=== PATIENT | male | born 1955 | race Caucasian/White ===

== ENCOUNTER 2016-12-04 09:13 | Outpatient (CLI) | payer MEDICAID ==
[2016-12-04] MEDS ORDERED: BUFFERED LIDOCAINE 10 ML SYRINGE IU ONE (11:14)
== END 2016-12-04 09:14 | disposition home or self-care (01) ==
DX: E04.1 Nontoxic single thyroid nodule (principal)

== ENCOUNTER 2016-12-15 13:00 | Outpatient (CLI) | payer MEDICAID | END 2016-12-15 13:01 | disposition home or self-care (01) | DX: I10 Essential (primary) hypertension (principal) ==

== ENCOUNTER 2017-08-21 09:15 | Outpatient (CLI) | payer MEDICAID ==
[2017-08-21 17:55] LABS: BASOPHILS % (AUTO) 0.9 %; EOSINOPHILS # (AUTO) 0.1 10^3/uL (0.0-0.7); EOSINOPHILS % (AUTO) 2.5 %; HCT - HEMATOCRIT 47.6 % (42.0-52.0); HGB - HEMOGLOBIN 15.6 g/dL (14.0-18.0); LYMPHOCYTES # (AUTO) 1.7 10^3/uL (1.5-3.5); LYMPHOCYTES % (AUTO) 39.1 %; MEAN CORPUSCULAR HEMOGLOBIN 32.9 pg (27.0-31.0); MEAN CORPUSCULAR HGB CONC 32.8 g/dL (32.0-36.0); MEAN CORPUSCULAR VOLUME 100.4 fL (80.0-94.0); MEAN PLATELET VOLUME 8.2 fL (7.4-11.4); MONOCYTES # (AUTO) 0.4 10^3/uL (0.0-1.0); MONOCYTES % (AUTO) 8.8 %; NEUTROPHILS # (AUTO) 2.1 10^3/uL (1.5-6.6); NEUTROPHILS % (AUTO) 48.7 %; NUCLEATED RED BLOOD CELLS AUTO 0.1 /100WBC; RED BLOOD COUNT 4.74 10^6/uL (4.70-6.10); RED CELL DISTRIBUTION WIDTH 14.4 % (12.0-15.0); UNCORRECTED WHITE BLOOD COUNT 4.4 x10^3/uL; WHITE BLOOD COUNT 4.4 x10^3/uL (4.8-10.8)
[2017-08-21 18:47] LABS: ALBUMIN/GLOBULIN RATIO 1.5 (1.0-2.2); BILIRUBIN,TOTAL 0.9 mg/dL (0.2-1.0); BUN - BLOOD UREA NITROGEN 18 mg/dL (6-20); CARBON DIOXIDE - CO2 29 mmol/L (21-32); CHLORIDE 101 mmol/L (101-111); GFR - MDRD 76 (>89); GLUCOSE 102 mg/dL (70-100); POTASSIUM 4.5 mmol/L (3.5-5.0); SODIUM 138 mmol/L (135-145); TOTAL PROTEIN 7.4 g/dL (6.7-8.2)
== END 2017-08-21 09:16 | disposition home or self-care (01) ==
LOC: LAB.F 09:15
PROVIDERS: ATTEND Physician Assistant Medical
DX: Z00.00 Encounter for general adult medical examination without abnormal findings (principal); I10 Essential (primary) hypertension; E07.9 Disorder of thyroid, unspecified
CPT/HCPCS: 36415; 80053; 84443; 85025

== ENCOUNTER 2017-11-12 09:37 | Outpatient (CLI) | payer MEDICAID ==
--- NOTE | 2017-11-12 15:56 | Ultrasound Report ---
DATE OF SERVICE: 11/12/2017 ULTRASOUND-GUIDED FINE NEEDLE ASPIRATION OF LEFT THYROID NODULE: 11/12/2017 CLINICAL INDICATION: Previous [place] 1 fine needle aspiration, Afirma testing. FINDINGS: Following obtaining informed consent, the patient's left neck was prepped and draped in the usual sterile fashion. The skin and soft tissues were anesthetized with lidocaine. Four, 22-gauge fine needle aspirations were performed, with a portion of the specimen submitted in Afirma vial. The patient tolerated the procedure well. No immediate complications. IMPRESSION: FINE NEEDLE ASPIRATION OF LEFT THYROID NODULE FOR AFIRMA TESTING. AWAIT PATHOLOGY REPORT. TD: 11/12/2017 16:51
[2017-11-12] MEDS ORDERED: BUFFERED LIDOCAINE 10 ML SYRINGE IU ONE (16:39)
== END 2017-11-12 09:38 | disposition home or self-care (01) ==
LOC: DI 09:37
PROVIDERS: ATTEND Surgery
DX: E04.1 Nontoxic single thyroid nodule (principal)
CPT/HCPCS: 10022; 76942

== ENCOUNTER 2018-06-25 17:10 | Outpatient (CLI) | payer MEDICAID ==
--- NOTE | 2018-06-26 10:37 | Ultrasound Report ---
Reason: THYROID MASS Procedure Date: 06/25/2018 Accession Number: [id number] / [id number] Procedure: US - Head or Neck Soft Tissue CPT Code: FULL RESULT: EXAM: THYROID ULTRASOUND EXAM DATE: 06/25/2018 05:50 PM. CLINICAL HISTORY: Thyroid mass. COMPARISON: Thyroid ultrasound 08/22/2017. TECHNIQUE: Real time sonographic imaging of the thyroid was performed by the lining layer. Multiple telemarketing sales representative static images were saved for review. FINDINGS: THYROID GLAND: Right Lobe: 5.1 x 2.1 x 2.1 cm, volume 11.8 cc. Normal background echotexture. Right Lobe Nodules: Complex cystic and solid anterior right mid thyroid nodule measures overall 1.6 x 0.7 x 1.2 cm with solid inferior component, previously 1.5 x 0.7 x 1.0 cm. Inferior to this is a solid hypoechoic nodule measuring 1.0 x 0.9 x 0.9 cm with vascularity, previously 0.8 x 0.6 x 0.9 cm. Within the superolateral right thyroid lobe is a 0.5 x 0.3 x 0.4 cm nodule, previously 0.4 x 0.3 x 0.4 cm. Left Lobe: 4.6 x 2.4 x 2.1 cm, volume 12.1 cc. Normal background echotexture. Left Lobe Nodules: Complex predominantly solid heterogeneous left mid thyroid nodule measures 2.6 x 1.9 x 2.1 cm with vascularity. Along its medial aspect is a solid echogenic nodule measuring 1.2 x 1.0 x 0.8 cm. On prior study, a larger complex cystic nodule septations measured 5.3 x 3.3 x 4.6 cm, overall interval decrease in size. Isthmus: 0.4 cm AP. Isthmic Nodules: Hypoechoic left thyroid isthmus nodule measures 0.9 x 0.4 x 0.9 cm with vascularity. LYMPH NODES: No adenopathy demonstrated in the central or lateral compartment. OTHER: None. IMPRESSION: 1. Complex left mid thyroid nodule previously measuring up to 5.3 cm on 08/22/2017 has decreased in size to 2.6 cm on present exam. Nodule appears more solid today with a solid noncalcified echogenic component medially that could be from a separate nodule. Interval FNA on 11/12/2017. Recommend correlation with FNA result. 2. Stable right thyroid nodules. Management recommendations are based on 2015 [place] [employer] Management Guidelines for Adult Patients with Thyroid Nodules and Differentiated Thyroid Cancer. [facility]
== END 2018-06-25 17:11 | disposition home or self-care (01) ==
LOC: DI 17:10
PROVIDERS: ATTEND Physician Assistant Medical
DX: E04.2 Nontoxic multinodular goiter (principal)
CPT/HCPCS: 76536

== ENCOUNTER 2018-06-26 09:55 | Outpatient (CLI) | payer MEDICAID ==
[2018-06-26 17:14] LABS: BASOPHILS % (AUTO) 0.7 %; EOSINOPHILS # (AUTO) 0.1 10^3/uL (0.0-0.7); EOSINOPHILS % (AUTO) 2.5 %; HGB - HEMOGLOBIN 15.4 g/dL (14.0-18.0); LYMPHOCYTES # (AUTO) 1.2 10^3/uL (1.5-3.5); LYMPHOCYTES % (AUTO) 31.5 %; MEAN CORPUSCULAR HEMOGLOBIN 33.7 pg (27.0-31.0); MEAN CORPUSCULAR HGB CONC 33.5 g/dL (32.0-36.0); MEAN CORPUSCULAR VOLUME 100.4 fL (80.0-94.0); MEAN PLATELET VOLUME 8.1 fL (7.4-11.4); MONOCYTES # (AUTO) 0.4 10^3/uL (0.0-1.0); MONOCYTES % (AUTO) 10.1 %; NEUTROPHILS # (AUTO) 2.1 10^3/uL (1.5-6.6); NEUTROPHILS % (AUTO) 55.2 %; PLT - PLATELET COUNT 272 10^3/uL (130-450); RED BLOOD COUNT 4.56 10^6/uL (4.70-6.10); RED CELL DISTRIBUTION WIDTH 14.3 % (12.0-15.0); WHITE BLOOD COUNT 3.7 x10^3/uL (4.8-10.8)
[2018-06-26 17:39] LABS: ALBUMIN 4.5 g/dL (3.2-5.5); ALBUMIN/GLOBULIN RATIO 1.5 (1.0-2.2); ALKALINE PHOSPHATASE 38 IU/L (42-121); ALT ALANINE AMINOTRANSFERASE 20 IU/L (10-60); AST ASPARTATE AMINOTRANSFERASE 22 IU/L (10-42); BUN - BLOOD UREA NITROGEN 18 mg/dL (6-20); CALCIUM 8.7 mg/dL (8.5-10.3); CARBON DIOXIDE - CO2 25 mmol/L (21-32); CHLORIDE 102 mmol/L (101-111); CHOL/HDL RATIO 2.5 (<5.0); CHOLESTEROL 240 mg/dL; CREATININE 0.9 mg/dL (0.6-1.2); GFR - MDRD 86 (>89); GLUCOSE 98 mg/dL (70-100); HDL CHOLESTEROL 96 mg/dL; LDL CHOLESTEROL,CALCULATED 130 mg/dL; LDL/HDL RATIO 1.4 (<3.6); SODIUM 135 mmol/L (135-145); TOTAL PROTEIN 7.5 g/dL (6.7-8.2); VLDL CHOLESTEROL 14 mg/dL
[2018-06-26 17:47] LABS: PSA SCREEN (Z12.5) 4.128 ng/mL (0.000-2.000)
[2018-06-26 17:51] LABS: FREE T3 3.39 pg/mL (2.5-3.9)
[2018-06-26 17:54] LABS: FREE T4 (FREE THYROXINE) 0.8 ng/dL (0.58-1.64)
[2018-06-26 17:56] LABS: TOTAL T3 0.92 ng/mL (0.87-1.78)
== END 2018-06-26 09:56 | disposition home or self-care (01) ==
LOC: LAB.F 09:55
PROVIDERS: ATTEND Physician Assistant Medical
DX: I10 Essential (primary) hypertension (principal); E78.5 Hyperlipidemia, unspecified; Z12.5 Encounter for screening for malignant neoplasm of prostate; E07.9 Disorder of thyroid, unspecified
CPT/HCPCS: 36415; 80053; 80061; 83721; 84153; 84432; 84439; 84480; 84481; 85025; 86800

== ENCOUNTER 2018-08-30 12:55 | Outpatient (CLI) | payer MEDICAID ==
--- NOTE | 2018-08-31 19:00 | MRI Report ---
Reason: ACUTE TEAR MEDICAL MENISCUS Procedure Date: 08/30/2018 Accession Number: [id number] / [id number] Procedure: MRI - Knee LT W/O CPT Code: FULL RESULT: EXAM: LEFT KNEE MRI WITHOUT CONTRAST EXAM DATE: 08/30/2018 01:06 PM. CLINICAL HISTORY: Acute tear medical meniscus. COMPARISON: None. TECHNIQUE: Multiplanar, multisequence T1-weighted and fluid-sensitive sequences of the knee without contrast. Other: None. FINDINGS: Bones: No fractures or subluxations. No marrow edema. No bone lesions. Articular Cartilage: Severe chondromalacia medial patellar facet. Severe chondromalacia mid medial tibiofemoral compartment. Medial Meniscus: Horizontal degenerative tear posterior horn medial meniscus with extension to the inferior articular surface and free edge. Free edge tear posterior horn medial meniscus at the meniscal root. Free edge tear medial meniscus body. Vertical tear medial meniscus body with extension to the inferior articular surface. Lateral Meniscus: Free edge tear posterior horn lateral meniscus. Cruciate Ligaments: The anterior and posterior cruciate ligaments are intact. Collateral Ligaments: The medial collateral and lateral collateral ligamentous structures are intact. Tendons: The quadriceps, patellar, semimembranosus, and popliteus tendons are unremarkable. Musculature: Probable grade 1 muscle tear and extensive edema of the popliteus muscle and popliteus musculotendinous junction. Edema seen superficial to the proximal lateral gastrocnemius muscle and the proximal soleus muscle. There is edema marginating the common peroneal nerve at the level of and proximal to the fibular head with mild nerve edema. Other: Small quantity of joint fluid. No popliteal cyst. No loose bodies. The medial and lateral retinacula are intact. Edema of the infrapatellar fat pad. Small 7 mm cyst at the distal ACL. IMPRESSION: 1. Complex tear body and posterior horn medial meniscus. 2. Severe chondromalacia medial tibiofemoral compartment. 3. Severe chondromalacia medial patellar facet. 4. Tear and edema of the popliteus muscle and popliteus musculotendinous junction. 5. There is edema superficial to the proximal lateral gastrocnemius muscle and soleus muscle which marginates the common peroneal nerve proximal and at the level of the fibular head. Mild increased signal of the common peroneal nerve. Possible common peroneal nerve injury. [facility] MUSCULOSKELETAL RADIOLOGY SECTION
== END 2018-08-30 12:56 | disposition home or self-care (01) ==
LOC: DI 12:55
PROVIDERS: ATTEND Physician Assistant Medical
DX: S83.242A Other tear of medial meniscus, current injury, left knee, initial encounter (principal); S86.812A Strain of other muscle(s) and tendon(s) at lower leg level, left leg, initial encounter; M22.42 Chondromalacia patellae, left knee

== ENCOUNTER 2018-11-26 14:43 | Outpatient (CLI) | payer MEDICAID ==
[2018-11-26 17:27] LABS: BASOPHILS % (AUTO) 0.8 %; EOSINOPHILS # (AUTO) 0.1 10^3/uL (0.0-0.7); EOSINOPHILS % (AUTO) 1.1 %; HGB - HEMOGLOBIN 14.9 g/dL (14.0-18.0); LYMPHOCYTES # (AUTO) 1.3 10^3/uL (1.5-3.5); LYMPHOCYTES % (AUTO) 23.7 %; MEAN CORPUSCULAR HEMOGLOBIN 33.2 pg (27.0-31.0); MEAN CORPUSCULAR VOLUME 100.3 fL (80.0-94.0); MEAN PLATELET VOLUME 7.7 fL (7.4-11.4); MONOCYTES # (AUTO) 0.4 10^3/uL (0.0-1.0); MONOCYTES % (AUTO) 7.1 %; NEUTROPHILS # (AUTO) 3.7 10^3/uL (1.5-6.6); NEUTROPHILS % (AUTO) 67.3 %; PLT - PLATELET COUNT 276 10^3/uL (130-450); RED BLOOD COUNT 4.51 10^6/uL (4.70-6.10); RED CELL DISTRIBUTION WIDTH 13.9 % (12.0-15.0); WHITE BLOOD COUNT 5.6 x10^3/uL (4.8-10.8)
[2018-11-26 17:33] LABS: CALCIUM 9.1 mg/dL (8.5-10.3)
== END 2018-11-26 14:44 | disposition home or self-care (01) ==
LOC: LAB.F 14:43
PROVIDERS: ATTEND Orthopaedic Surgery Sports Medicine
DX: M23.92 Unspecified internal derangement of left knee (principal); M23.222 Derangement of posterior horn of medial meniscus due to old tear or injury, left knee; M23.232 Derangement of other medial meniscus due to old tear or injury, left knee
CPT/HCPCS: 36415; 80048; 85025

== ENCOUNTER 2018-11-27 06:11 | Day surgery (SDC) | payer MEDICAID ==
[2018-11-27] MEDS ORDERED: ceFAZolin 2 GM/50 ML 2 GM/50 ML BAG IV ONE ×2 (06:26→08:43)
[2018-11-27] MEDS ORDERED: BUPIVACAINE 0.25%-EPI 1:200000 PF 30 ML VIAL ONE (07:12)
[2018-11-27] MEDS ORDERED: EPINEPHrine 1 MG/ML AMP ONE (07:13)
--- NOTE | 2018-11-27 07:14 | ANESTHESIA ---
Pre-Anesthesia VS, & Labs - Diagnosis left knee internal deraingement with medial meniscal tear - Procedure left knee arthroscopy with partial medial meniscectomy possible shaving chondroplasty Vital Signs: Temp Pulse Resp BP Pulse Ox 36.3 C L 71 16 144/106 H 98 11/27/18 06:31 11/27/18 06:31 11/27/18 06:31 11/27/18 06:31 11/27/18 06:31 Height 5 ft 10.5 in Weight (kg) 94 kg Body Mass Index 24.4 - NPO >8 hours Home Medications and Allergies Home Medications: Ambulatory Orders Diclofenac Sodium [Voltaren] 2 gm TP QID PRN 11/26/18 Ibuprofen 1 - 2 tab PO TID PRN 11/26/18 Losartan Potassium 100 mg PO DAILY 11/26/18 Nitroglycerin [Nitrostat] 0.4 mg SL Q5MIN PRN 11/26/18 amLODIPine [Norvasc] 10 mg PO DAILY 11/26/18 Diclofenac Sodium [Voltaren] 2 gm TP QID PRN 11/26/18 Ibuprofen 1 - 2 tab PO TID PRN 11/26/18 Losartan Potassium 100 mg PO DAILY 11/26/18 Nitroglycerin [Nitrostat] 0.4 mg SL Q5MIN PRN 11/26/18 amLODIPine [Norvasc] 10 mg PO DAILY 11/26/18 Allergies/Adverse Reactions: Allergies Allergy/AdvReac Type Severity Reaction Status Date / Time No Known Drug Allergies Allergy Verified 11/27/18 06:52 Anes History & Medical History - Anesthetic History Anesthesia Complications: reports: No previous complications Family history of Anesthesia Complications: Denies Family history of Malignant Hyperthermia: Denies - Medical History Cardiovascular: reports: Hypertension, Murmur Pulmonary: reports: None Gastrointestinal: reports: None Urinary: reports: None Musculoskeletal: reports: Chronic back pain Endocrine/Autoimmune: reports: Other Skin: reports: None - Surgical History Eyes Ears Nose Throat (EENT): Other Orthopedic: Spine surgery Exam General: Alert Dental: WNL Mouth Openin Fingerbreadth Neck Mobility: Normal Mallampati classification: II Thyromental Distance: greater than 6 cm Respiratory: Lungs clear, Normal breath sounds, No respiratory distress, No accessory muscle use Cardiovascular: Regular rate, Normal S1, Normal S2, No murmurs Mental/Cognitive Status: Alert/Oriented X3, Normal for patient Plan Anesthesia Type: General Consent for Procedure(s) Verified and Reviewed: Yes Code Status: Attempt Resuscitation ASA classification: 2-Mild systemic disease Is this case an emergency?: No
[2018-11-27] MEDS ORDERED: LACTATED RINGERS 1,000 ML IV ONE (08:17)
[2018-11-27] MEDS ORDERED: BUPIVACAINE 0.25%-EPI 1:200000 PF 30 ML VIAL SUBQ ONE (08:17)
[2018-11-27] MEDS ORDERED: KETOROLAC 30 MG/ML VIAL IVP ONE (08:43)
[2018-11-27] MEDS ORDERED: fentaNYL 100 MCG/2 ML VIAL IVP ONE (08:43)
[2018-11-27] MEDS ORDERED: PROPOFOL 200 MG/20 ML VIAL IVP ONE (08:43)
[2018-11-27] MEDS ORDERED: ONDANSETRON 4 MG/2 ML VIAL IVP ONE (08:43)
[2018-11-27] MEDS ORDERED: ACETAMINOPHEN 1,000 MG/100 ML 100 ML IV ONE (08:43)
[2018-11-27] MEDS ORDERED: LIDOCAINE-MPF 2% 5 ML VIAL IM ONE (08:43)
[2018-11-27] MEDS: LABETALOL 20 MG/4 ML SYRINGE IVP ONE ×3 (08:50→09:00)
[2018-11-27] MEDS ORDERED: ONDANSETRON 4 MG/2 ML VIAL IVP PRN (08:55)
[2018-11-27] MEDS ORDERED: HYDROcod/ACETAM 5/325 MG TABLET PO PRN (08:55)
[2018-11-27] MEDS ORDERED: oxyCODONE 5 MG TABLET PO PRN (08:55)
--- NOTE | 2018-11-27 09:02 | IMMEDIATE POSTOPERATIVE NOTE ---
Immediate Postoperative Note - Procedure Note Procedure Date: 11/27/18 Pre-Op Diagnosis: Left knee medial meniscus tear, chondromalacia Procedure: Left knee arthroscopic partial med and lat meniscectomy, shaving chondro Post-Op Diagnosis: Left knee medial meniscus tear, chondromalacia, lateral meniscus tear Primary Surgeon: Giovanni Tatum MD Anesthesia Type: General LMA, Local Findings: As above Complications: No complications Estimated Blood Loss (in cc): 25 Specimens and Cultures: None Plan of Care: Patient tolerated procedure well. Instrument and sponge counts correct. Patient transferred to recovery room in stable condition. Patient will follow standard postoperative left knee arthroscopic partial meniscectomy protocol. He will avoid exertion but do gradual activities as tolerated. He will keep his dressings clean dry and intact for 3 days and then transition to waterproof Band-Aids at that point and may shower but not soak. He will work on gradual range of motion when at rest. We will see him back in 10-14 days or sooner on an as-needed basis. Patient's is contacted in the waiting room case is discussed postoperative instructions reviewed she verbalized understanding agreement satisfaction with the plan. He will be on aspirin 325 mg daily for DVT prophylaxis for 1 month. Patient is prescribed [place] he denies any contraindications to these medications and verbalizes understanding of the risks and wishes to take the meds as directed.
[2018-11-27 10:00] VITALS: BP 150/93
[2018-11-27] MEDS ORDERED: amLODIPine 5 MG TABLET PO ONE (10:00)
[2018-11-27] MEDS ORDERED: LOSARTAN 50 MG TABLET PO ONE (10:00)
--- NOTE | 2018-11-27 16:29 | OPERATIVE REPORT ---
DATE OF SERVICE: 11/27/2018 Physician: Billy Tatum MD SURGEON: Billy Tatum MD FILLING CARRIER: None. ANESTHESIOLOGIST: Suleiman Eng MD. ANESTHESIA: General LMA anesthesia as well as periarticular 30 mL of 0.25% Marcaine with epinephrine local. ESTIMATED BLOOD LOSS: Less than 25 mL COMPRESSION DEVICE: Contralateral right calf SCD boots. PREOPERATIVE ANTIBIOTICS: Weight-based IV Ancef. PREOPERATIVE DIAGNOSES 1. Left knee medial meniscus tear. 2. Left knee chondromalacia. POSTOPERATIVE DIAGNOSES 1. Left knee medial meniscus tear. 2. Left knee chondromalacia. 3. Left knee lateral meniscus tear. PROCEDURES PERFORMED 1. Left knee arthroscopic partial medial meniscectomy. 2. Left knee arthroscopic shaving chondroplasty of medial compartment. 3. Left knee arthroscopic partial lateral meniscectomy. INTRAOPERATIVE COMPLICATIONS: None noted. INTRAOPERATIVE FINDINGS: Clear suprapatellar pouch, minimal debris medial and lateral gutters, chondromalacia grade 1-2 patellofemoral joint and grade 1-2 medial compartment as well as grade 1-3 small area of the lateral tibial plateau, minimal free edge flap of the lateral meniscus tear, less than 5%. Medial meniscus shows some extrusion and complex tearing of the anterior horn and body as well as posterior horn. This involves approximately 40%-50%. ACL and PCL okay. HISTORY OF PRESENT ILLNESS AND INDICATIONS: Patient is a 63-year-old gentleman with longstanding left knee pain, particularly in the medial compartment. This was mechanical in nature and dependent on his activities to a large degree. He was found to have not only symptoms and signs that correlated with medial meniscus tear, but also an MRI that corresponded to that. He was indicated for operative treatment. Please see previous discussion for risks, benefits, and alternatives reviewed. These are again highlighted with the patient and the patient's in the preoperative area. Their questions are answered. Patient verbalizes understanding of the above and verbalizes his wish to proceed with operative treatment. Informed consent was given. PROCEDURE: On 11/27/2018, patient is identified in the preoperative care unit. He identifies his left knee as the operative site. This is signed by the operating surgeon. Patient received preoperative weight-based IV antibiotics. He is brought to the operating room, placed supine on the operating table. General anesthesia was administered. Patient has a well-padded tourniquet placed high on the left thigh, taking care to avoid encumbrance of the genitalia, though the tourniquet was not used during the case. Patient's left knee is shaved. Left knee and left lower extremity was prescrubbed with chlorhexidine solution and prepped and draped in the usual sterile fashion. At this point, surgical pause identifies his left knee as the operative site. Local anesthetic infused anteromedially, anterolaterally, and superomedially. A small incision is made superomedially and anterolaterally. Knee is flexed. The scope is introduced into the notch and into the suprapatellar pouch. Fluid is infused. Outflow portal is created superomedially and then outside-in technique used to identify location for anteromedial portal site, which is created, and a probe is introduced. Please see diagnostic arthroscopy. At this point, a valgus maneuver is performed to open up the medial compartment, and then a curved meniscal shaver is used to debride the nonviable and torn portions of the medial meniscus. The transition zones are smoothed out to decrease risk of propagation as much torn cartilage as necessary is removed, though as much healthy cartilage as possible is left in place. This is then probed and noted to be stable. There is minimal shaving chondroplasty performed of the tibial plateau and femoral condyle where there are small loose pieces. These are then probed and noted to be stable. At this point, attention is directed towards lateral compartment, where a varus maneuver is used to open up the lateral compartment and a small flap coming off the free edge of the body of the lateral meniscus identified, and this is gently debrided throughout. The instruments are pointed away from the articular cartilage to protect that, and as minimal meniscal tissue as possible is removed. The lateral meniscus is then probed. There is also a grade 3 area of chondromalacia of the lateral tibial plateau, which is probed and stable. No indication for intervention here, in that the patient is asymptomatic in that region and the potential for associated morbidity with cartilage removal is considered. At this point, the joint is copiously irrigated, reexamined and noted to be free of loose debris, and then evacuated and then arthroscopic portals are closed with interrupted nylon suture. Skin is washed and dried. Local anesthetic is infused around the portal sites. Xeroform dressing is applied, dry sterile dressing, ABD pad, Sof-Rol, and then an Jose C wrap are applied. Patient tolerated the procedure well. Instrument and sponge counts are correct. Patient is transferred to recovery room in stable condition. He will follow standard postoperative partial meniscectomy and chondroplasty protocol, left knee. Patient's is contacted in the waiting room, case is discussed, arthroscopic photos reviewed. Her questions are answered. She verbalizes understanding and satisfaction with plan as outlined. Patient will be on perioperative aspirin for 1 month. He denied any contraindication to that, as well as the [place] prescribed for pain. He will use them as directed. They were given dressing change instructions and activity instructions, and we will see him in 10-14 days or sooner on an as-needed basis. Her questions are answered. She verbalizes agreement and satisfaction with the plan as the patient had preoperatively. TD: 11/27/2018 13:44 MARIANA
== END 2018-11-27 06:12 | disposition home or self-care (01) ==
LOC: SDS 06:11
PROVIDERS: ATTEND Orthopaedic Surgery Sports Medicine
PROC: 0SBD4ZZ Excision of Left Knee Joint, Percutaneous Endoscopic Approach (ICD-10-PCS; 2018-11-27)
PROC: 0SBD4ZZ Excision of Left Knee Joint, Percutaneous Endoscopic Approach (ICD-10-PCS; principal; 2018-11-27 07:30)
DX: S83.242A Other tear of medial meniscus, current injury, left knee, initial encounter (principal); M23.92 Unspecified internal derangement of left knee; M94.262 Chondromalacia, left knee; S83.282A Other tear of lateral meniscus, current injury, left knee, initial encounter; I10 Essential (primary) hypertension; Z87.891 Personal history of nicotine dependence
CPT/HCPCS: 29880; A9270; J0131; J0690; J7120

== ENCOUNTER 2019-02-28 08:54 | Outpatient (CLI) | payer MEDICAID | END 2019-02-28 08:55 | disposition home or self-care (01) | LOC: LAB.F 08:54 | PROVIDERS: ATTEND Physician Assistant Medical | DX: E03.9 Hypothyroidism, unspecified (principal) | CPT/HCPCS: 36415; 84443 ==

== ENCOUNTER 2019-05-09 08:04 | Outpatient (CLI) | payer MEDICAID | END 2019-05-09 08:05 | disposition home or self-care (01) | LOC: LAB.S 08:04 | PROVIDERS: ATTEND Physician Assistant Medical | DX: R97.20 Elevated prostate specific antigen [PSA] (principal); E03.9 Hypothyroidism, unspecified | CPT/HCPCS: 36415; 84153; 84443 ==

== ENCOUNTER 2019-05-27 08:56 | Outpatient (CLI) | payer MEDICAID ==
[2019-05-27 17:37] LABS: PSA FREE 0.61 ng/mL (0.16-2.81)
[2019-05-27 17:38] LABS: PSA TOTAL 4.31 ng/mL (0.000-2.000)
== END 2019-05-27 08:57 | disposition home or self-care (01) ==
LOC: LAB.S 08:56
PROVIDERS: ATTEND Physician Assistant Medical
DX: R97.20 Elevated prostate specific antigen [PSA] (principal)
CPT/HCPCS: 36415; 84153; 84154

== ENCOUNTER 2019-06-18 09:46 | Outpatient (CLI) | payer MEDICAID | END 2019-06-18 09:47 | disposition home or self-care (01) | LOC: LAB.S 09:46 | PROVIDERS: ATTEND Family Medicine | DX: E03.9 Hypothyroidism, unspecified (principal) | CPT/HCPCS: 36415; 84443 ==

== ENCOUNTER 2019-09-30 09:25 | Outpatient (CLI) | payer MEDICAID | END 2019-09-30 09:26 | disposition home or self-care (01) | LOC: LAB.S 09:25 | PROVIDERS: ATTEND Physician Assistant Medical | DX: E03.9 Hypothyroidism, unspecified (principal) | CPT/HCPCS: 36415; 84443 ==

== ENCOUNTER 2020-05-11 09:28 | Outpatient (CLI) | payer MEDICAID ==
[2020-05-11 16:06] LABS: PSA FREE 0.616 ng/mL (0.16-2.81)
[2020-05-11 16:08] LABS: PSA TOTAL 5.198 ng/mL (0.000-2.000)
== END 2020-05-11 09:29 | disposition home or self-care (01) ==
LOC: LAB.S 09:28
PROVIDERS: ATTEND Physician Assistant
DX: R97.20 Elevated prostate specific antigen [PSA] (principal); E03.9 Hypothyroidism, unspecified
CPT/HCPCS: 36415; 84153; 84154; 84443

== ENCOUNTER 2020-07-07 10:34 | Outpatient (CLI) | payer MEDICAID ==
[2020-07-07 15:34] LABS: BASOPHILS % (AUTO) 0.6 %; EOSINOPHILS # (AUTO) 0.1 10^3/uL (0.0-0.7); EOSINOPHILS % (AUTO) 1.6 %; HGB - HEMOGLOBIN 14.8 g/dL (14.0-18.0); LYMPHOCYTES # (AUTO) 1.4 10^3/uL (1.5-3.5); LYMPHOCYTES % (AUTO) 27.7 %; MEAN CORPUSCULAR HEMOGLOBIN 34.3 pg (27.0-31.0); MEAN CORPUSCULAR VOLUME 100.7 fL (80.0-94.0); MEAN PLATELET VOLUME 10.1 fL (7.4-11.4); MONOCYTES # (AUTO) 0.4 10^3/uL (0.0-1.0); MONOCYTES % (AUTO) 7.9 %; NEUTROPHILS # (AUTO) 3.1 10^3/uL (1.5-6.6); NEUTROPHILS % (AUTO) 61.8 %; PLT - PLATELET COUNT 289 10^3/uL (130-450); RED BLOOD COUNT 4.32 10^6/uL (4.70-6.10); RED CELL DISTRIBUTION WIDTH 12.5 % (12.0-15.0); WHITE BLOOD COUNT 4.9 x10^3/uL (4.8-10.8)
[2020-07-07 16:40] LABS: ALBUMIN 4.5 g/dL (3.2-5.5); ALBUMIN/GLOBULIN RATIO 1.5 (1.0-2.2); ALKALINE PHOSPHATASE 41 IU/L (42-121); ALT ALANINE AMINOTRANSFERASE 19 IU/L (10-60); AST ASPARTATE AMINOTRANSFERASE 21 IU/L (10-42); BILIRUBIN,TOTAL 0.8 mg/dL (0.2-1.0); BUN - BLOOD UREA NITROGEN 13 mg/dL (6-20); CALCIUM 9.1 mg/dL (8.5-10.3); CARBON DIOXIDE - CO2 25 mmol/L (21-32); CHLORIDE 100 mmol/L (101-111); CHOLESTEROL 230 mg/dL; CREATININE 0.8 mg/dL (0.6-1.2); GLUCOSE 105 mg/dL (70-100); HDL CHOLESTEROL 115 mg/dL; LDL CHOLESTEROL,CALCULATED 105 mg/dL; LDL/HDL RATIO 0.9 (<3.6); SODIUM 136 mmol/L (135-145); TOTAL PROTEIN 7.6 g/dL (6.7-8.2); VLDL CHOLESTEROL 10 mg/dL
== END 2020-07-07 10:35 | disposition home or self-care (01) ==
LOC: LAB.S 10:34
PROVIDERS: ATTEND Physician Assistant
DX: E03.9 Hypothyroidism, unspecified (principal); Z79.899 Other long term (current) drug therapy
CPT/HCPCS: 36415; 80053; 80061; 83721; 84443; 85025

== ENCOUNTER 2020-09-24 16:39 | Outpatient (CLI) | payer MEDICAID | END 2020-09-24 16:40 | disposition home or self-care (01) | LOC: COV 16:39 | PROVIDERS: ATTEND Family Medicine | DX: R53.83 Other fatigue (principal); Z20.828 Contact with and (suspected) exposure to other viral communicable diseases ==

== ENCOUNTER 2020-11-24 12:23 | Outpatient (CLI) | payer MEDICAID ==
[2020-11-24 15:18] LABS: PSA FREE 0.7 ng/mL (0.16-2.81)
[2020-11-24 15:19] LABS: PSA TOTAL 6.1 ng/mL (0.000-2.000)
== END 2020-11-24 12:24 | disposition home or self-care (01) ==
LOC: LAB.S 12:23
PROVIDERS: ATTEND Physician Assistant
DX: R97.20 Elevated prostate specific antigen [PSA] (principal)
CPT/HCPCS: 36415; 84153; 84154

== ENCOUNTER 2021-02-10 11:34 | Outpatient (CLI) | payer MEDICAID ==
[2021-02-10 15:45] LABS: FREE T3 3.65 pg/mL (2.5-3.9)
== END 2021-02-10 11:35 | disposition home or self-care (01) ==
LOC: LAB.S 11:34
PROVIDERS: ATTEND Physician Assistant
DX: E03.9 Hypothyroidism, unspecified (principal); Z79.899 Other long term (current) drug therapy
CPT/HCPCS: 36415; 84443; 84481

== ENCOUNTER 2021-03-22 13:50 | Outpatient (CLI) | payer MEDICAID ==
[2021-03-22 20:16] LABS: PSA FREE 0.464 ng/mL (0.16-2.81)
[2021-03-22 20:17] LABS: PSA TOTAL 6.456 ng/mL (0.000-2.000)
== END 2021-03-22 13:51 | disposition home or self-care (01) ==
LOC: LAB.S 13:50
PROVIDERS: ATTEND Physician Assistant
DX: R97.20 Elevated prostate specific antigen [PSA] (principal)
CPT/HCPCS: 36415; 84153; 84154

== ENCOUNTER 2021-11-01 14:17 | Outpatient (CLI) | payer MEDICAID ==
[2021-11-01 20:46] LABS: PSA FREE 1.731 ng/mL (0.16-2.81)
[2021-11-01 20:47] LABS: PSA TOTAL 9.209 ng/mL (0.000-2.000)
[2021-11-02 17:38] LABS: THYROID STIMULATING HORMONE 8.54 uIU/mL (0.34-5.60)
[2021-11-02 18:16] LABS: FREE T4 (FREE THYROXINE) 0.86 ng/dL (0.58-1.64)
== END 2021-11-01 14:18 | disposition home or self-care (01) ==
LOC: LAB.S 14:17
PROVIDERS: ATTEND Physician Assistant
DX: R97.20 Elevated prostate specific antigen [PSA] (principal); E03.9 Hypothyroidism, unspecified
CPT/HCPCS: 36415; 84153; 84154; 84439; 84443

== ENCOUNTER 2021-12-08 13:02 | Outpatient (CLI) | payer MEDICAID ==
[2021-12-08 20:37] LABS: THYROID STIMULATING HORMONE 1.2 uIU/mL (0.34-5.60)
== END 2021-12-08 13:03 | disposition home or self-care (01) ==
LOC: LAB.S 13:02
PROVIDERS: ATTEND Internal Medicine
DX: E03.9 Hypothyroidism, unspecified (principal)
CPT/HCPCS: 36415; 84443

== ENCOUNTER 2021-12-14 08:00 | Outpatient (CLI) | payer MEDICAID | END 2021-12-14 23:59 | LOC: LAB.S 08:00 | PROVIDERS: ATTEND Physician Assistant Medical | DX: L72.3 Sebaceous cyst (principal) | CPT/HCPCS: 87070; 87205 ==

== ENCOUNTER 2022-03-02 09:25 | Outpatient (CLI) | payer MEDICAID ==
[2022-03-02 14:38] LABS: BASOPHILS % (AUTO) 0.7 %; EOSINOPHILS # (AUTO) 0.1 10^3/uL (0.0-0.7); EOSINOPHILS % (AUTO) 2.6 %; HCT - HEMATOCRIT 43.6 % (42.0-52.0); HGB - HEMOGLOBIN 14.6 g/dL (14.0-18.0); LYMPHOCYTES # (AUTO) 1.5 10^3/uL (1.5-3.5); LYMPHOCYTES % (AUTO) 31.9 %; MEAN CORPUSCULAR HEMOGLOBIN 30.8 pg (27.0-31.0); MEAN CORPUSCULAR HGB CONC 33.5 g/dL (32.0-36.0); MEAN PLATELET VOLUME 10.7 fL (7.4-11.4); MONOCYTES # (AUTO) 0.4 10^3/uL (0.0-1.0); MONOCYTES % (AUTO) 8.4 %; NEUTROPHILS # (AUTO) 2.6 10^3/uL (1.5-6.6); NEUTROPHILS % (AUTO) 56.2 %; PLT - PLATELET COUNT 309 10^3/uL (130-450); RED BLOOD COUNT 4.74 10^6/uL (4.70-6.10); RED CELL DISTRIBUTION WIDTH 13.2 % (12.0-15.0); WHITE BLOOD COUNT 4.5 x10^3/uL (4.8-10.8)
[2022-03-02 15:39] LABS: ALBUMIN 4.1 g/dL (3.2-5.5); ALBUMIN/GLOBULIN RATIO 1.6 (1.0-2.2); ALKALINE PHOSPHATASE 42 IU/L (42-121); ALT ALANINE AMINOTRANSFERASE 26 IU/L (10-60); AST ASPARTATE AMINOTRANSFERASE 23 IU/L (10-42); BILIRUBIN,TOTAL 0.9 mg/dL (0.2-1.0); BUN - BLOOD UREA NITROGEN 16 mg/dL (6-20); CALCIUM 9.4 mg/dL (8.5-10.3); CARBON DIOXIDE - CO2 28 mmol/L (21-32); CHLORIDE 99 mmol/L (101-111); CHOLESTEROL 203 mg/dL; GFR - MDRD 75 (>89); GLUCOSE 101 mg/dL (70-100); HDL CHOLESTEROL 67 mg/dL; LDL CHOLESTEROL,CALCULATED 127 mg/dL; LDL/HDL RATIO 1.9 (<3.6); SODIUM 136 mmol/L (135-145); TOTAL PROTEIN 6.6 g/dL (6.7-8.2); TRIGLYCERIDES 45 mg/dL; VLDL CHOLESTEROL 9 mg/dL
[2022-03-02 15:53] LABS: THYROID STIMULATING HORMONE 1.44 uIU/mL (0.34-5.60)
== END 2022-03-02 09:26 | disposition home or self-care (01) ==
LOC: LAB.S 09:25
PROVIDERS: ATTEND Registered Nurse
DX: E03.9 Hypothyroidism, unspecified (principal); E78.5 Hyperlipidemia, unspecified; R97.20 Elevated prostate specific antigen [PSA]; I10 Essential (primary) hypertension
CPT/HCPCS: 36415; 80050; 80061; 83721; 84153

== ENCOUNTER 2023-03-06 08:22 | Outpatient (CLI) | payer MEDICARE, BC ==
[2023-03-06 14:59] LABS: BASOPHILS % (AUTO) 0.8 %; EOSINOPHILS # (AUTO) 0.2 10^3/uL (0.0-0.7); EOSINOPHILS % (AUTO) 3.5 %; HCT - HEMATOCRIT 44.7 % (42.0-52.0); HGB - HEMOGLOBIN 14.3 g/dL (14.0-18.0); LYMPHOCYTES # (AUTO) 1.5 10^3/uL (1.5-3.5); LYMPHOCYTES % (AUTO) 29.9 %; MEAN CORPUSCULAR HEMOGLOBIN 30.5 pg (27.0-31.0); MEAN CORPUSCULAR VOLUME 95.3 fL (80.0-94.0); MEAN PLATELET VOLUME 10.5 fL (7.4-11.4); MONOCYTES # (AUTO) 0.3 10^3/uL (0.0-1.0); NEUTROPHILS # (AUTO) 2.9 10^3/uL (1.5-6.6); NEUTROPHILS % (AUTO) 58.6 %; PLT - PLATELET COUNT 278 10^3/uL (130-450); RED BLOOD COUNT 4.69 10^6/uL (4.70-6.10); RED CELL DISTRIBUTION WIDTH 13.2 % (12.0-15.0); WHITE BLOOD COUNT 4.9 x10^3/uL (4.8-10.8)
[2023-03-06 15:44] LABS: ALBUMIN 3.9 g/dL (3.2-5.5); ALBUMIN/GLOBULIN RATIO 1.4 (1.0-2.2); ALKALINE PHOSPHATASE 39 IU/L (42-121); ALT ALANINE AMINOTRANSFERASE 22 IU/L (10-60); AST ASPARTATE AMINOTRANSFERASE 19 IU/L (10-42); BILIRUBIN,TOTAL 0.5 mg/dL (0.2-1.0); BUN - BLOOD UREA NITROGEN 22 mg/dL (6-20); CALCIUM 8.8 mg/dL (8.5-10.3); CARBON DIOXIDE - CO2 29 mmol/L (21-32); CHLORIDE 105 mmol/L (101-111); CHOLESTEROL 188 mg/dL; GFR - MDRD 75 (>89); GLUCOSE 102 mg/dL (70-100); HDL CHOLESTEROL 62 mg/dL; LDL CHOLESTEROL,CALCULATED 118 mg/dL; LDL/HDL RATIO 1.9 (<3.6); POTASSIUM 4.1 mmol/L (3.5-5.0); SODIUM 140 mmol/L (135-145); TOTAL PROTEIN 6.7 g/dL (6.7-8.2); TRIGLYCERIDES 42 mg/dL; VLDL CHOLESTEROL 8 mg/dL
[2023-03-06 15:45] LABS: THYROID STIMULATING HORMONE 1.34 uIU/mL (0.34-5.60)
== END 2023-03-06 08:23 | disposition home or self-care (01) ==
LOC: LAB.S 08:22
PROVIDERS: ATTEND Registered Nurse
DX: I10 Essential (primary) hypertension (principal); E78.5 Hyperlipidemia, unspecified; R97.20 Elevated prostate specific antigen [PSA]; E03.9 Hypothyroidism, unspecified
CPT/HCPCS: 36415; 80053; 80061; 83721; 84153; 84443; 85025

== ENCOUNTER 2024-03-03 07:13 | Outpatient (CLI) | payer MEDICARE, BC ==
[2024-03-03 14:45] LABS: BASOPHILS % (AUTO) 0.8 %; EOSINOPHILS # (AUTO) 0.1 10^3/uL (0.0-0.7); EOSINOPHILS % (AUTO) 2.6 %; HCT - HEMATOCRIT 45.1 % (42.0-52.0); HGB - HEMOGLOBIN 14.8 g/dL (14.0-18.0); LYMPHOCYTES # (AUTO) 1.6 10^3/uL (1.5-3.5); LYMPHOCYTES % (AUTO) 31.5 %; MEAN CORPUSCULAR HEMOGLOBIN 31.2 pg (27.0-31.0); MEAN CORPUSCULAR HGB CONC 32.8 g/dL (32.0-36.0); MEAN CORPUSCULAR VOLUME 95.1 fL (80.0-94.0); MEAN PLATELET VOLUME 10.1 fL (7.4-11.4); MONOCYTES # (AUTO) 0.4 10^3/uL (0.0-1.0); MONOCYTES % (AUTO) 7.5 %; NEUTROPHILS # (AUTO) 2.8 10^3/uL (1.5-6.6); NEUTROPHILS % (AUTO) 57.4 %; PLT - PLATELET COUNT 298 10^3/uL (130-450); RED BLOOD COUNT 4.74 10^6/uL (4.70-6.10); RED CELL DISTRIBUTION WIDTH 13.3 % (12.0-15.0)
[2024-03-03 15:06] LABS: CHOLESTEROL 201 mg/dL; HDL CHOLESTEROL 67 mg/dL; LDL CHOLESTEROL,CALCULATED 123 mg/dL; LDL/HDL RATIO 1.8 (<3.6); TRIGLYCERIDES 57 mg/dL (48-352); VLDL CHOLESTEROL 11 mg/dL
[2024-03-03 15:07] LABS: THYROID STIMULATING HORMONE 2.48 uIU/mL (0.34-5.60)
== END 2024-03-03 07:14 | disposition home or self-care (01) ==
LOC: LAB.S 07:13
PROVIDERS: ATTEND Registered Nurse
DX: E78.5 Hyperlipidemia, unspecified (principal); Z12.5 Encounter for screening for malignant neoplasm of prostate; E03.9 Hypothyroidism, unspecified; Z79.899 Other long term (current) drug therapy
CPT/HCPCS: 36415; 80061; 84443; 85025; G0103; 83721; 84153

== ENCOUNTER 2024-04-08 08:17 | Outpatient (CLI) | payer MEDICARE, BC ==
--- NOTE | 2024-04-09 08:51 | XRAY Report ---
PROCEDURE: Hip w/Pelvis 2-3V LT INDICATIONS: OSTEOARTHRITIS, LEFT HIP TECHNIQUE: 2 views of the hip were acquired. COMPARISON: None. FINDINGS: Bones: There is prior right total hip arthroplasty. Moderate to severe left hip joint osteoarthritic changes are seen. No acute fracture or dislocation. No evidence of avascular necrosis of femoral hea d. Moderate degenerative disc disease throughout visualized lower lumbar spine is seen. No suspicious bony lesions. Soft tissues: No suspicious soft tissue calcifications or masses. IMPRESSION: No acute pelvic or hip fracture. Moderate to severe left hip joint osteoarthritis. No evidence of maico scular necrosis. Prior right total hip arthroplasty. No gross hardware loosening or failure. Moderate degenerative disc disease in lower lumbar spine. Reviewed by: Ezequiel Palacio MD on 04/09/2024 8:50 AM PDT Approved by: Ezequiel Palacio MD on 04/09/2024 8:50 AM PDT Station ID: [id number]
== END 2024-04-08 08:18 | disposition home or self-care (01) ==
LOC: DI.S 08:17
PROVIDERS: ATTEND Physician Assistant
DX: M16.12 Unilateral primary osteoarthritis, left hip (principal); Z96.698 Presence of other orthopedic joint implants; Z96.641 Presence of right artificial hip joint; M51.36 Other intervertebral disc degeneration, lumbar region

== ENCOUNTER 2024-07-03 07:38 | Outpatient (CLI) | payer MEDICARE, BC ==
[~2024-07-03 07:38] MED LIST: GADOTERATE MEGLUMINE 10 MMOL/20 ML VIAL ONE
[2024-07-03] MEDS: GADOTERATE MEGLUMINE 10 MMOL/20 ML VIAL IVP ONE (09:43)
--- NOTE | 2024-07-03 16:12 | MRI Report ---
PROCEDURE: Pelvis W/WO INDICATIONS: ELEVATED PSA CONTRAST: CLARISCAN 16.8 ML TECHNIQUE: Coronal ultra fast SE, axial T1 FSE with fat saturation, 3-plane nonbreath-hold T2 FSE. After the ad ministration of contrast, dynamic axial, delayed axial and coronal ultra fast GE or 2-D spoiled GE wi th fat saturation through the pelvis. Optional diffusion weighted imaging and ADC may be performed. COMPARISON: None. FINDINGS: Image quality: Diffusion weighted and dynamic contrast enhanced images are diagnostic. Prostate: Gland size is 3.7 x 4.7 x 5.3 cm; ellipsoid gland volume is 48 mL. PSA Density: PSA not pr ovided for calculation. Prostate lesions: Lesion 1: Location: Right, apex, medial peripheral zone. This is best seen on axial series 6, image 16 and coronal series 7, image 15. Size: 1.2 x 1.0 cm. T2W signal: Circumscribed, homogenous moderate hypointense focus (PI-RADS 4 or 5). DWI signal: Markedly hyperintense signal (PI-RADS 4-5). ADC signal: Markedly hypointense signal (PI-RADS 4-5). Enhancement: Yes Extracapsular extension: No. No neurovascular involvement. No seminal vesicle involvement. PI-RADS score: 4 Genitourinary system: Bladder wall thickness is normal. Distal ureters are non distended. Bowel and peritoneum: No pathologic free pelvic fluid. Inferior colon and small bowel loops are nor mal in caliber. Nodes and vessels: No pelvic or inguinal adenopathy by size criteria. Iliac vessels are normal in c aliber. Soft tissues: No inguinal hernias. Bones: Bone marrow demonstrates normal overall signal. No suspicious bony lesions. Small left hip edy int effusion. IMPRESSION: PI-RADS 4 lesion in the medial peripheral zone of the apex. No aggressive osseous abnormality. No pelvic adenopathy by size criteria. Reviewed by: Hudson Horton MD on 07/03/2024 4:11 PM PDT Approved by: Hudson Horton MD on 07/03/2024 4:11 PM PDT Station ID: [id number]
== END 2024-07-03 07:39 | disposition home or self-care (01) ==
LOC: DI 07:38
PROVIDERS: ATTEND Urology
DX: N42.9 Disorder of prostate, unspecified (principal); R97.20 Elevated prostate specific antigen [PSA]
CPT/HCPCS: 36415; 72197; 82565; A9575